=== PATIENT | female | born 1980 | race American Indian/Alaskan Native ===

== ENCOUNTER 2018-07-05 09:13 | Emergency (ER) | payer SELFPAY ==
[2018-07-05 09:20] VITALS: BMI 26.4
[2018-07-05 09:21] VITALS: BP 144/84; PULSE 82; RESP 17; TEMP 99; O2SAT 100
--- NOTE | 2018-07-05 09:44 | C.PDOC ---
History Of Present Illness Pt c/o generalized itching. Time Seen by Provider: 07/05/18 09:31 Chief Complaint (Nursing): Abnormal Skin Integrity History Per: Patient Onset/Duration Of Symptoms: Days (about 1 month) Current Symptoms Are (Timing): Still Present Possible Cause: Unknown Associated Symptoms: Itching. denies: Swelling, Trouble Swallowing Home/EMS Treatment: Benadryl Severity: Moderate Additional History Per: Prior Records Past Medical History Reviewed: Historical Data, Nursing Documentation, Vital Signs Vital Signs: Last Vital Signs Temp 99.0 F 07/05/18 09:20 Pulse 82 07/05/18 09:20 Resp 17 07/05/18 09:20 BP 144/84 07/05/18 09:20 Pulse Ox 100 07/05/18 09:20 - Medical History Other PMH: Thyroid nodule? - [employer] Procedures MONITORING NOS (12/14/13) LOW CERVICAL (12/14/13) Family History: States: Unknown Family Hx - Social History Hx Tobacco Use: No Hx Alcohol Use: No Hx Substance Use: No Review Of Systems Except As Marked, All Systems Reviewed And Found Negative. Constitutional: Negative for: Fever, Weakness ENT: Negative for: Mouth Pain, Mouth Swelling, Throat Pain, Throat Swelling Cardiovascular: Negative for: Chest Pain Respiratory: Negative for: Cough, Shortness of Breath, Wheezing Gastrointestinal: Negative for: Vomiting, Abdominal Pain Skin: Positive for: Rash Neurological: Negative for: Weakness, Numbness Physical Exam - Physical Exam Appears: Non-toxic, No Acute Distress Skin: Warm, Dry, Other (Some areas of excoriation) Head: Atraumatic, Normacephalic Eye(s): bilateral: PERRL, EOMI Oral Mucosa: Moist Tongue: Normal Appearing Lips: Normal Appearing Throat: Normal Neck: Normal ROM, Supple Lymphatic: No Adenopathy Cardiovascular: Rhythm Regular Respiratory: Normal Breath Sounds, No Accessory Muscle Use Gastrointestinal/Abdominal: Soft, No Tenderness Extremity: Normal ROM, No Pedal Edema, No Calf Tenderness Neurological/Psych: Oriented x3, Normal Speech, Normal Motor, Normal Sensation ED Course And Treatment O2 Sat by Pulse Oximetry: 100 Pulse Ox Interpretation: Normal Disposition Counseled Patient/Family Regarding: Studies Performed, Diagnosis, Need For Followup, Rx Given - Disposition Referrals: [facility] [Outside] Disposition: HOME/ ROUTINE Disposition Time: 09:45 Condition: STABLE Additional Instructions: Follow up in the clinic for further evaluation and treatment. Return to the ER if you develop throat swelling, trouble breathing or swallowing, worsening of symptoms or if you have any other concerns. Prescriptions: Cetirizine HCl [Zyrtec] 10 mg PO DAILY PRN #30 capsule PRN Reason: Itching / Pruritus Hydrocortisone 1% Cream [Cortizone 1% Cream] 1 appl TP BID PRN #1 tube PRN Reason: Itching / Pruritus Instructions: Itchy Skin Forms: [facility] (Chinese) - Clinical Impression Clinical Impression: Pruritus
== END 2018-07-05 10:02 | disposition home or self-care (01) ==
LOC: C.ER 09:13
DX: L29.9 Pruritus, unspecified (principal)